=== PATIENT | female | born 1995 | race Two or more races ===

== ENCOUNTER 2021-05-10 00:57 | Observation (INO) | payer MEDICAID ==
[~2021-05-10] VITALS: Ht 172.7 cm; Wt 63.5 kg
[2021-05-10 02:01] LABS: Urine Bacteria NONE SEEN /hpf (None Seen); Urine Blood Negative /uL (Negative); Urine Mucus FEW (None Seen); Urine Specific Gravity 1.009 (1.001-1.035); Urine WBC 20 /hpf (0 - 5)
[2021-05-10 02:03] LABS: Alcohol, Urine < 3.0 mg/dL (0-10); Amphetamine Screen, Urine NEGATIVE (NEGATIVE); Barbiturate Scree,Urine NEGATIVE (NEGATIVE); Benzodiazephine Screen, Urine NEGATIVE (NEGATIVE); Cannabinoid Screen, Urine POSITIVE (NEGATIVE); Cocaine Screen, Urine NEGATIVE (NEGATIVE); Phencyclidine Screen, Urine NEGATIVE (NEGATIVE)
[2021-05-10 02:10] LABS: Opiate Scree,Urine NEGATIVE (NEGATIVE)
[2021-05-10] MEDS ORDERED: LORazepam 2MG/ML-1ML VIAL IV ONE (02:15)
[2021-05-10] MEDS ORDERED: MAGNESIUM SULFATE 100 ML IV ONE (02:15)
[2021-05-10] MEDS ORDERED: MAGNESIUM SULFATE 40MG/ML 1,000 ML IV SCH (02:15)
[2021-05-10] MEDS ORDERED: LACTATED RINGER'S 1,000 ML IV SCH (02:15)
[2021-05-10] MEDS ORDERED: BETAMETHASONE ACET (30mg/5ml) 5ml Vial 6mg/ml IM ONE (02:30)
[2021-05-10 02:45] LABS: Basophils # (auto) 0 10 ^3/uL (0-0.2); Basophils % (auto) 0.4 % (0.0-2.0); Eosinophils # (auto) 0 10 ^3/uL (0-0.8); Hematocrit 35.2 % (36.0-46.0); Hemoglobin 11.2 g/dL (12.2-16.2); Lymphocytes % (auto) 9.7 % (10.0-50.0); Mean Corpuscular Hemoglobin 27.8 pg (28.0-32.0); Monocytes # (auto) 0.6 10 ^3/uL (0-1.3); Neutrophils # (auto) 8.4 10 ^3/uL (1.6-8.6); Neutrophils % (auto) 83.9 % (37.0-80.0); Red Blood Cells 4.04 10^6/uL (4.0-5.20); Red Cell Distribution Width 13.5 % (11.8-14.3)
[2021-05-10] MEDS ORDERED: ACETAMINOPHEN 325 MG TAB PO ONE (02:45)
[2021-05-10] MEDS ORDERED: AMPICILLIN SOD 2GM INJ 2 GM in SODIUM CHL 0.9% 100 ML IV ONE (03:00)
[2021-05-10] MEDS ORDERED: AMPICILLIN SOD 1 GM VL ONE (03:24)
[2021-05-11 06:06] LABS: Rubella Antibodies, IgG 1.72 index (Immune >0.99)
[2021-05-11 07:06] LABS: RPR Non Reactive (Non Reactive)
== END 2021-05-10 03:50 | disposition short-term general hospital (02) ==
LOC: LDRP 00:57
PROVIDERS: ADMIT Obstetrics & Gynecology Obstetrics; ATTEND Obstetrics & Gynecology Obstetrics
DX: O60.03 Preterm labor without delivery, third trimester (principal); Z20.822 Contact with and (suspected) exposure to COVID-19; Z3A.30 30 weeks gestation of pregnancy; Z87.51 Personal history of pre-term labor
CPT/HCPCS: 36415; 59025; 76805; 80307; 81001; 81002; 85025; 86592; 86762; 86850; 86900; 86901; 87340; 87426; 96361; 96365; 96372; 96375; G0378; G0379; J0290; J0702; 96360

== ENCOUNTER 2021-10-27 09:18 | Emergency (ER) | payer MEDICAID, OTHER ==
[~2021-10-27] VITALS: Ht 172.7 cm; Wt 68.0 kg
[2021-10-27 09:18] VITALS: BP 139/74
[2021-10-27] MEDS ORDERED: METH500T22 PO (11:07)
[2021-10-27] MEDS ORDERED: IBUP600T27 PO (11:07)
== END 2021-10-27 11:16 | disposition home or self-care (01) ==
LOC: ER 09:18
DX: S39.012A Strain of muscle, fascia and tendon of lower back, initial encounter (principal); V43.62XA Car passenger injured in collision with other type car in traffic accident, initial encounter; Y93.89 Activity, other specified; Y92.89 Other specified places as the place of occurrence of the external cause; Y99.8 Other external cause status
CPT/HCPCS: 72100

== ENCOUNTER 2023-08-12 20:47 | Emergency (ER) | payer MEDICAID ==
[~2023-08-12] VITALS: Ht 172.7 cm; Wt 63.0 kg
[~2023-08-12 20:47] MED LIST: IBUP-1454 PO; METH-1181 PO
[2023-08-12 22:25] VITALS: BP 130/84; PULSE 77; RESP 20; TEMP 98.2; O2SAT 97
[2023-08-12] MEDS: KETOROLAC TROMETH 30 MG/ML 1ML VIAL IM ONE (22:39)
[2023-08-12] MEDS ORDERED: CEPH500C PO (22:43)
[2023-08-12] MEDS ORDERED: IBUP-1454 PO (22:43)
== END 2023-08-12 23:07 | disposition home or self-care (01) ==
LOC: ER 20:47
DX: L03.115 Cellulitis of right lower limb (principal)
CPT/HCPCS: 73562; 96372; 99283; J1885

== ENCOUNTER 2023-09-15 08:55 | Emergency (ER) | payer MEDICAID ==
[~2023-09-15] VITALS: Ht 172.7 cm; Wt 59.3 kg
[~2023-09-15 08:55] MED LIST changes: +CEPH500C PO
[2023-09-15 09:19] VITALS: TEMP 98.6
[2023-09-15 09:20] VITALS: PULSE 107; RESP 20; O2SAT 99
[2023-09-15 09:24] LABS: Basophils # (auto) 0 10 ^3/uL (0-0.2); Basophils % (auto) 0.6 % (0.0-2.0); Eosinophils # (auto) 0 10 ^3/uL (0-0.8); Hematocrit 47.2 % (36.0-46.0); Hemoglobin 14.8 g/dL (12.2-16.2); Lymphocytes # (auto) 1.8 10 ^3/uL (0.4-5.4); Lymphocytes % (auto) 22.1 % (10.0-50.0); Mean Corpuscular Hemoglobin 28.1 pg (28.0-32.0); Mean Corpuscular Hgb Conc. 31.3 g/dL (32.0-36.0); Mean Corpuscular Volume 89.8 fL (80.0-100.0); Monocytes # (auto) 0.5 10 ^3/uL (0-1.3); Monocytes % (auto) 6.4 % (0.0-12.0); Neutrophils # (auto) 5.6 10 ^3/uL (1.6-8.6); Neutrophils % (auto) 70.9 % (37.0-80.0); Nucleated Red Blood Cells % 0.1 %; Red Blood Cells 5.25 10^6/uL (4.0-5.20); Red Cell Distribution Width 15.3 % (11.8-14.3); White Blood Cell 7.9 10^3/uL (4.4-10.8)
[2023-09-15 09:38] LABS: Chloride 92 mmol/L (98-107); Potassium 4.5 mmol/L (3.5-5.1); Sodium 130 mmol/L (136-145)
[2023-09-15 09:39] LABS: Anion Gap 22 (5-15); Carbon Dioxide 16 mmol/L (20-30)
[2023-09-15 09:44] LABS: Glucose 75 mg/dL (74-106)
[2023-09-15 09:45] LABS: BUN/Creatinine Ratio 7.5 (10.0-20.0); Blood Alcohol < 3.0 mg/dL (<10); Blood Urea Nitrogen 10 mg/dL (9-23)
[2023-09-15] MEDS: SODIUM CHLORIDE 0.9% 1,000 ML IV ONE ×2 (09:45→11:02)
[2023-09-15] MEDS: THIAMINE 100mg/ml INJ (200mg/2ml VIAL) IV ONE (09:57)
[2023-09-15] MEDS: LORazepam 2MG/ML-1ML VIAL IV ONE (09:57)
[2023-09-15] MEDS: ONDANSETRON HCL 4 MG/2 ML VIAL IV ONE (10:03)
[2023-09-15 11:17] LABS: Urine Bacteria FEW /hpf (None Seen); Urine Blood Negative /uL (Negative); Urine Clarity Clear (Clear); Urine Color Yellow (Yellow); Urine Hyaline Cast MANY /lpf (0 - 2); Urine Mucus FEW (None Seen); Urine Protein, UAD 2+ (Negative); Urine Specific Gravity 1.027 (1.001-1.035); Urine WBC 1 /hpf (0 - 5)
[2023-09-15 13:00] VITALS: BP 144/88; PULSE 85; RESP 15; O2SAT 99
== END 2023-09-15 13:01 | disposition home or self-care (01) ==
LOC: ER 08:55
DX: F10.10 Alcohol abuse, uncomplicated (principal); R07.89 Other chest pain; R06.02 Shortness of breath
CPT/HCPCS: 36415; 80048; 80320; 81001; 85025; 93005; 96361; 96374; 96375; 99284; J2060; J2405; J3411; J7030